=== PATIENT | female | born 1980 | race Caucasian/White ===

== ENCOUNTER 2018-02-02 20:16 | Emergency (ER) | END 2018-02-03 01:51 | disposition home or self-care (01) ==

== ENCOUNTER 2018-07-23 15:43 | Emergency (ER) | payer OTHER ==
[~2018-07-23] VITALS: Ht 172.7 cm; Wt 116.8 kg
[~2018-07-23 15:43] MED LIST: ACET1TAB40 PO; AMLO2.5T78 PO; BENA5TAB33 PO; CYCL10TA7 PO; ESCI5TAB; HYDR-3498 PO; IBUP-1542 PO; LISI10TA2; NITR-58 PO
[2018-07-23 15:50] VITALS: Ht 172.7 cm; Wt 116.8 kg
[2018-07-23] MEDS ORDERED: AMLO-147 PO (17:34)
[2018-07-23] MEDS ORDERED: LOSA50TA14 PO (17:34)
[2018-07-23] MEDS ORDERED: ASPI-817 PO (17:35)
[2018-07-23] MEDS ORDERED: CHOL200056 PO (17:36)
--- NOTE | 2018-07-23 18:35 | ERD ---
ER Documentation Chief Complaint Chief Complaint complains of dizziness and light headedness HPI Patient is a 37-year-old female with hypertension who presents with headache and dizziness. Her symptoms come and go. She said that it started in mid June. When the dizziness comes it lasts about 2 minutes and then stops. She had laboratory studies done by her primary doctor on July 06 including a TSH which were normal. She is trying to eat frequently to avoid this from happening. Upon review of old medical records this is the patient's sixth visit to the ER s 2011. The patient does have a primary doctor. ROS All systems reviewed and are negative except as per history of present illness. Medications Home Meds Reported Medications Cholecalciferol (Vitamin D3) (Vitamin D-3) 2,000 Unit Tablet, 2000 UNIT PO DAILY, TAB 07/23/18 Aspirin* (Aspirin* EC) 81 Mg Tablet.dr, 81 MG PO DAILY, TAB 07/23/18 Losartan Potassium* (Losartan Potassium*) 50 Mg Tablet, 50 MG PO DAILY, TAB 07/23/18 Amlodipine Besylate* (Amlodipine Besylate*) 10 Mg Tablet, 10 MG PO DAILY, #30 TAB 07/23/18 Discontinued Reported Medications Benazepril Hcl* (Benazepril Hcl*) Unknown Strength Tablet, PO DAILY, #30 TAB 07/01/15 Amlodipine Besylate* (Amlodipine Besylate*) Unknown Strength Tablet, PO DAILY, #30 TAB 07/01/15 Escitalopram Oxalate* (Lexapro*) 5 Mg Tablet 09/29/11 Lisinopril* (Lisinopril*) 10 Mg Tablet 09/29/11 Discontinued Scripts Ibuprofen* (Motrin*) 600 Mg Tab, 600 MG PO Q6, #30 TAB Prov:TOMMIE COX PA-C 02/03/18 Hydrocodone Bit-Acetaminophen* (Virgil*) 5-325 Mg Tab, 1 TAB PO Q6 PRN for PAIN, #20 TAB Prov:ISMAEL JARRELL NP 07/01/15 Ibuprofen* (Motrin*) 600 Mg Tab, 600 MG PO Q6H PRN for PAIN AND OR ELEVATED TEMP, #30 TAB Prov:ISMAEL JARRELL NP 07/01/15 Cyclobenzaprine Hcl* (Cyclobenzaprine Hcl*) 10 Mg Tablet, 5 MG PO TID, #21 TAB Prov:ISMAEL JARRELL NP 07/01/15 Acetaminophen-Codeine* (Acetaminophen-Cod #3*) 300-30 Mg Tab, 1 TAB PO Q4H PRN for PAIN, #15 TAB Prov:ROLAND MONTOYA NP 06/27/15 Nitrofurantoin Monohyd Macrocr* (Macrobid*) 100 Mg Capsr, 100 MG PO BID for 7 Days, CAP Prov:ROLAND MONTOYA NP 06/27/15 Allergies Allergies: Coded Allergies: nitrofurantoin (Verified Allergy, Unknown, 07/23/18) PMhx/Soc Medical and Surgical Hx: pt denies Surgical Hx History of Surgery: No Anesthesia Reaction: No Hx Neurological Disorder: No Hx Respiratory Disorders: No Hx Cardiac Disorders: Yes (HTN) Hx Psychiatric Problems: No Hx Miscellaneous Medical Probl: No Hx Alcohol Use: No Hx Substance Use: No Hx Tobacco Use: No Smoking Status: Never smoker FmHx Family History: No diabetes Physical Exam Vitals Vital Signs Date Temp Pulse Resp B/P (MAP) Pulse Ox O2 O2 Flow FiO2 Time Delivery Rate 07/23/18 76 20 146/93 99 Room Air 18:49 (110) 07/23/18 82 20 138/91 99 Room Air 16:47 (107) 07/23/18 98.7 79 20 150/87 99 15:50 (108) Physical Exam Const: No acute distress Head: Atraumatic Eyes: Normal Conjunctiva ENT: Normal External Ears, Nose and Mouth. Neck: Full range of motion. No meningismus. Resp: Clear to auscultation bilaterally Cardio: Regular rate and rhythm, no murmurs Abd: Soft, non tender, non distended. Normal bowel sounds Skin: No petechiae or rashes Back: No midline or flank tenderness Ext: No cyanosis, or edema Neur: Awake and alert, cranial nerves II through XII are intact, strength is 5 out of 5 in all 4 extremities Psych: Normal Mood and Affect Results 24 hrs Laboratory Tests Test 07/23/18 17:17 07/23/18 17:21 Bedside Glucose 85 mg/dL POC Beta HCG, Qualitative NEGATIVE Procedures/MDM EKG read by me: Rate/Rhythm: Regular rate and rhythm at a rate of 62 Intervals: Normal Impression: No evidence of ischemia or arrhythmia Chest x-ray read by radiology. Patient is a 37-year-old female who presents with dizziness and hypertension. Accu-Chek was normal, EKG shows no signs of ischemia or arrhythmia, and test was negative. At this point I doubt acute coronary syndrome or significant arrhythmia. I doubt or ectopic . I do not believe the patient requires further workup or admission to the hospital at this time. The patient may benefit from a Holter monitor as an outpatient. The patient can return for any worsening symptoms. Departure Diagnosis: Primary Impression: Dizziness Condition: Fair Patient Instructions: Dizziness, Unk Cause Referrals: Your doctor Additional Instructions: Call your primary care doctor TOMORROW for an appointment during the next 1 WEEK.Tell the air hose coupler that you were referred from this facility.See the doctor sooner or return here if your condition worsens before your appointment time. JORGE CASTELAN MD Jul 23, 2018 18:35
[2018-07-23 18:49] VITALS: BP 146/93; PULSE 76; RESP 20
== END 2018-07-23 18:52 | disposition home or self-care (01) ==
LOC: E/R 15:43
DX: R42 Dizziness and giddiness (principal); R40.2142 Coma scale, eyes open, spontaneous, at arrival to emergency department; R40.2362 Coma scale, best motor response, obeys commands, at arrival to emergency department; R40.2252 Coma scale, best verbal response, oriented, at arrival to emergency department; I10 Essential (primary) hypertension; Z79.82 Long term (current) use of aspirin
CPT/HCPCS: 81025; 82962; 93005